=== PATIENT | female | born 1945 | race Caucasian/White ===

== ENCOUNTER 2025-01-02 09:43 | Inpatient (IN) | payer MEDICARE ==
[2025-01-02 10:31] LABS: BASOPHILS PERCENT AUTO 0.3 % (0.0-1.0); EOSINOPHILS PERCENT AUTO 0.7 % (1.0-3.0); HEMATOCRIT 41.6 % (37.0-47.0); HEMOGLOBIN 13.9 g/dL (12.0-16.0); LYMPHOCYTES PERCENT AUTO 16.5 % (20.5-50.1); MEAN CORPUSCULAR HEMOGLOBIN 30.8 pg (27.0-34.0); MEAN CORPUSCULAR HGB CONC 33.4 g/dL (33.0-35.0); MONOCYTES PERCENT AUTO 7.6 % (2-8); NEUTROPHILS PERCENT AUTO 74.9 % (42.2-75.2); PLATELET COUNT,PLT 260 10^3/uL (150-450); RED BLOOD CELL COUNT 4.52 10^6/uL (4.2-5.4); WHITE BLOOD CELL COUNT,WBC 7.6 10^3/uL (5.0-10.0)
[2025-01-02 10:53] LABS: A/G RATIO 0.6; ALANINE AMINOTRANSFERASE,ALT 15 U/L (14-59); ALBUMIN 3.4 g/dL (3.4-5.0); ALKALINE PHOSPHATASE 116 U/L (46-116); ANION GAP 11.7 mEq/L (7-13); ASPARTATE AMNIOTRANSFERASE,AST 13 U/L (15-37); BILIRUBIN TOTAL 0.9 mg/dL (0.2-1.0); BLOOD UREA NITROGEN,BUN 18 mg/dL (7-18); CALCIUM 9.7 mg/dL (8.5-10.1); CARBON DIOXIDE,CO2 25 mmol/L (21-32); CHLORIDE,CL 94 mmol/L (98-107); CREATININE 0.82 mg/dL (0.55-1.02); GLUCOSE RANDOM 142 mg/dL (70-99); MAGNESIUM 1.9 mg/dL (1.8-2.4); POTASSIUM,K 3.7 mmol/L (3.5-5.1); PROTEIN TOTAL,TP 8.8 g/dL (6.4-8.2); SODIUM,NA 127 mmol/L (136-145)
[2025-01-02] MEDS: Ketorolac 30 MG/ML SDV IM ONE (10:53)
[2025-01-02 10:54] LABS: ESTIMATED GFR 72 mL/min (>=60)
[2025-01-02 14:13] LABS: HEMOGLOBIN A1C 5.3 % (<5.7)
[2025-01-02 14:21] LABS: T4 FREE 1.42 ng/dL (0.76-1.46); TSH ULTRASENSITIVE 1.36 uIU/mL (0.36-3.74)
[2025-01-02] MEDS: Sodium Chloride 1 GM Tab PO SCH (14:58)
[2025-01-02] MEDS: Enoxaparin 40 MG/0.4 ML Syringe SUBCUT SCH (14:58)
[2025-01-02] MEDS: Docusate Sodium 100 MG Cap PO SCH (14:58)
[2025-01-02] MEDS: Acetaminophen 325 MG Tab PO SCH (14:58)
[2025-01-02] MEDS: Ibuprofen 400 MG Tab PO SCH (17:52)
[2025-01-02] MEDS: Sodium Chloride 0.9% 1,000 ML IV SCH (18:08)
[2025-01-02] MEDS: oxyCODONE 5 MG Tab PO PRN (20:36)
[2025-01-03 06:21] LABS: BASOPHILS PERCENT AUTO 0.3 % (0.0-1.0); EOSINOPHILS PERCENT AUTO 1.4 % (1.0-3.0); HEMATOCRIT 36.7 % (37.0-47.0); HEMOGLOBIN 12.1 g/dL (12.0-16.0); LYMPHOCYTES PERCENT AUTO 27.4 % (20.5-50.1); MEAN CORPUSCULAR HEMOGLOBIN 30.6 pg (27.0-34.0); MEAN CORPUSCULAR VOLUME 92.7 fL (80-100); MONOCYTES PERCENT AUTO 10.8 % (2-8); NEUTROPHILS PERCENT AUTO 60.1 % (42.2-75.2); PLATELET COUNT,PLT 226 10^3/uL (150-450); RED BLOOD CELL COUNT 3.96 10^6/uL (4.2-5.4); WHITE BLOOD CELL COUNT,WBC 5.8 10^3/uL (5.0-10.0)
[2025-01-03 06:37] LABS: ANION GAP 8.8 mEq/L (7-13); CALCIUM 9.1 mg/dL (8.5-10.1); CREATININE 0.68 mg/dL (0.55-1.02); EST CRCL DRUG DOSING (CG) 51.32 mL/min; POTASSIUM,K 3.8 mmol/L (3.5-5.1)
[2025-01-03] MEDS ORDERED: Ibuprofen 400 MG Tab PO SCH (10:00)
[2025-01-03] MEDS: fentaNYL 100 MCG/2 ML SDV IVPUSH ONE ×2 (13:47→18:11)
[2025-01-03] MEDS: Ibuprofen 400 MG Tab PO SCH (16:22)
[2025-01-03] MEDS: fentaNYL 12 MCG/HR Transdermal Patch TRDERM SCH (18:38)
[2025-01-04] MEDS: Ziprasidone Mesylate 20 MG Vial IM STA (00:32)
[2025-01-04] MEDS: Ibuprofen 400 MG Tab PO SCH (02:46)
[2025-01-04 06:46] LABS: BASOPHILS PERCENT AUTO 0.4 % (0.0-1.0); EOSINOPHILS PERCENT AUTO 1.4 % (1.0-3.0); HEMATOCRIT 40.4 % (37.0-47.0); HEMOGLOBIN 13.3 g/dL (12.0-16.0); LYMPHOCYTES PERCENT AUTO 30.7 % (20.5-50.1); MEAN CORPUSCULAR HGB CONC 32.9 g/dL (33.0-35.0); MEAN CORPUSCULAR VOLUME 94.2 fL (80-100); MONOCYTES PERCENT AUTO 11.7 % (2-8); NEUTROPHILS PERCENT AUTO 55.8 % (42.2-75.2); PLATELET COUNT,PLT 186 10^3/uL (150-450); RED BLOOD CELL COUNT 4.29 10^6/uL (4.2-5.4); WHITE BLOOD CELL COUNT,WBC 4.9 10^3/uL (5.0-10.0)
[2025-01-04 06:57] LABS: CALCIUM 9.4 mg/dL (8.5-10.1); CREATININE 0.62 mg/dL (0.55-1.02); EST CRCL DRUG DOSING (CG) 56.28 mL/min
[2025-01-05 15:25] LABS: APPEARANCE,URINE CLEAR (CLEAR); BILIRUBIN,URINE NEGATIVE (NEGATIVE); COLOR,URINE DARK YELLOW (YELLOW); GLUCOSE,URINE NEGATIVE (NEGATIVE); KETONES,URINE NEGATIVE (NEGATIVE); LEUKOCYTE ESTERASE,URINE NEGATIVE (NEGATIVE); NITRITE,URINE NEGATIVE (NEGATIVE); OCCULT BLOOD,URINE NEGATIVE (NEGATIVE); PROTEIN,URINE TRACE (NEGATIVE); UROBILINOGEN,URINE 0.2 mg/dL (0.2-1.0)
[2025-01-05 15:40] LABS: WBC,URINE 0-5 /HPF (0-5/HPF)
[2025-01-05 15:41] LABS: BACTERIA,URINE RARE /HPF (0-FEW/HPF); EPITHELIAL CELLS,URINE FEW /HPF (NOT SEEN); HYALINE CASTS,URINE RARE; MUCUS,URINE FEW /LPF (NOT SEEN); RBC,URINE 0-5 /HPF (0-5)
[2025-01-05] MEDS: Ziprasidone Mesylate 20 MG Vial IM STA (22:40)
[2025-01-05] MEDS: Ziprasidone Mesylate 20 MG Vial ONE (22:40)
[2025-01-07 06:23] LABS: BASOPHILS PERCENT AUTO 0.2 % (0.0-1.0); EOSINOPHILS PERCENT AUTO 3.2 % (1.0-3.0); HEMATOCRIT 35.7 % (37.0-47.0); HEMOGLOBIN 11.6 g/dL (12.0-16.0); LYMPHOCYTES PERCENT AUTO 30.8 % (20.5-50.1); MEAN CORPUSCULAR HEMOGLOBIN 31.3 pg (27.0-34.0); MEAN CORPUSCULAR HGB CONC 32.5 g/dL (33.0-35.0); MEAN CORPUSCULAR VOLUME 96.2 fL (80-100); MONOCYTES PERCENT AUTO 11.5 % (2-8); NEUTROPHILS PERCENT AUTO 54.3 % (42.2-75.2); PLATELET COUNT,PLT 237 10^3/uL (150-450); RED BLOOD CELL COUNT 3.71 10^6/uL (4.2-5.4)
[2025-01-07 06:36] LABS: ANION GAP 10.8 mEq/L (7-13); CALCIUM 9.3 mg/dL (8.5-10.1); CREATININE 0.65 mg/dL (0.55-1.02); EST CRCL DRUG DOSING (CG) 53.69 mL/min; POTASSIUM,K 3.8 mmol/L (3.5-5.1)
== END 2025-01-08 15:32 | disposition swing bed (61) | DRG 543 ==
LOC: DL.ED 09:43 → UNDOADMOB 13:13 → DL.MS 13:13 → OBSVTOIN 01-04 12:58 → DL.MS 01-05 12:53
PROVIDERS: ADMIT Internal Medicine; ATTEND Internal Medicine
DX: M80.08XA Age-related osteoporosis with current pathological fracture, vertebra(e), initial encounter for fracture (principal); M48.54XA Collapsed vertebra, not elsewhere classified, thoracic region, initial encounter for fracture; E87.1 Hypo-osmolality and hyponatremia; E83.52 Hypercalcemia; E66.9 Obesity, unspecified; R73.9 Hyperglycemia, unspecified; Z68.28 Body mass index [BMI] 28.0-28.9, adult; Z98.891 History of uterine scar from previous surgery; Z88.0 Allergy status to penicillin
CPT/HCPCS: 36415; 72128; 72131; 80048; 80053; 81001; 83036; 83735; 84439; 84443; 84484; 85025; 96372; 97110-GP; 97116-GP; 97161-GP; 97165-GO; 97530-GO; 99223; 99232; 99233; 99239; A9270-GY; G0378; J1650; J1885; J3010; J3486; J7030

== ENCOUNTER 2025-01-08 08:38 | Inpatient (IN) | payer MEDICARE ==
[2025-01-08] MEDS: Acetaminophen 325 MG Tab PO SCH (16:26)
[2025-01-08] MEDS: Ibuprofen 400 MG Tab PO SCH (16:26)
[2025-01-08] MEDS ORDERED: Check Patch TRDERM SCH (21:00)
[2025-01-09] MEDS: Docusate Sodium 100 MG Cap PO SCH (08:14)
[2025-01-09] MEDS: Enoxaparin 40 MG/0.4 ML Syringe SUBCUT SCH (08:14)
[2025-01-09] MEDS ORDERED: fentaNYL 12 MCG/HR Transdermal Patch TRDERM SCH (17:30)
[2025-01-11 06:32] LABS: BASOPHILS PERCENT AUTO 0.2 % (0.0-1.0); EOSINOPHILS PERCENT AUTO 4.3 % (1.0-3.0); HEMATOCRIT 33.4 % (37.0-47.0); HEMOGLOBIN 11.3 g/dL (12.0-16.0); LYMPHOCYTES PERCENT AUTO 29.6 % (20.5-50.1); MEAN CORPUSCULAR HEMOGLOBIN 32.7 pg (27.0-34.0); MEAN CORPUSCULAR HGB CONC 33.8 g/dL (33.0-35.0); MEAN CORPUSCULAR VOLUME 96.5 fL (80-100); MONOCYTES PERCENT AUTO 11.3 % (2-8); NEUTROPHILS PERCENT AUTO 54.6 % (42.2-75.2); PLATELET COUNT,PLT 220 10^3/uL (150-450); RED BLOOD CELL COUNT 3.46 10^6/uL (4.2-5.4); WHITE BLOOD CELL COUNT,WBC 4.4 10^3/uL (5.0-10.0)
[2025-01-11] MEDS: oxyCODONE 5 MG Tab PO PRN (06:46)
[2025-01-11 07:09] LABS: ALBUMIN 2.5 g/dL (3.4-5.0); BILIRUBIN TOTAL 0.4 mg/dL (0.2-1.0); BUN/CREATININE RATIO 36.8 (No establ ref range); CALCIUM 9.4 mg/dL (8.5-10.1); CREATININE 0.57 mg/dL (0.55-1.02); EST CRCL DRUG DOSING (CG) 61.22 mL/min
[2025-01-11 07:11] LABS: A/G RATIO 0.56
[2025-01-15] MEDS: Chlorthalidone 25 MG Tab PO ONE (08:20)
[2025-01-15 08:39] LABS: BASOPHILS PERCENT AUTO 0.2 % (0.0-1.0); EOSINOPHILS PERCENT AUTO 3.9 % (1.0-3.0); HEMATOCRIT 33.4 % (37.0-47.0); HEMOGLOBIN 10.5 g/dL (12.0-16.0); LYMPHOCYTES PERCENT AUTO 28.3 % (20.5-50.1); MEAN CORPUSCULAR HEMOGLOBIN 30.5 pg (27.0-34.0); MEAN CORPUSCULAR HGB CONC 31.4 g/dL (33.0-35.0); MEAN CORPUSCULAR VOLUME 97.1 fL (80-100); MONOCYTES PERCENT AUTO 7.6 % (2-8); PLATELET COUNT,PLT 201 10^3/uL (150-450); RED BLOOD CELL COUNT 3.44 10^6/uL (4.2-5.4); WHITE BLOOD CELL COUNT,WBC 4.6 10^3/uL (5.0-10.0)
[2025-01-15 08:53] LABS: ANION GAP 8.8 mEq/L (7-13); CALCIUM 9.3 mg/dL (8.5-10.1); CREATININE 0.5 mg/dL (0.55-1.02); EST CRCL DRUG DOSING (CG) 69.79 mL/min; POTASSIUM,K 3.8 mmol/L (3.5-5.1)
== END 2025-01-15 13:20 | DRG 560 ==
LOC: DL.MS 16:17
PROVIDERS: ADMIT Internal Medicine; ATTEND Student in an Organized Health Care Education/Training Program
DX: M48.54XD Collapsed vertebra, not elsewhere classified, thoracic region, subsequent encounter for fracture with routine healing (principal); E87.1 Hypo-osmolality and hyponatremia; F05 Delirium due to known physiological condition; F03.90 Unspecified dementia, unspecified severity, without behavioral disturbance, psychotic disturbance, mood disturbance, and anxiety; E66.9 Obesity, unspecified; R73.9 Hyperglycemia, unspecified; D63.8 Anemia in other chronic diseases classified elsewhere; E83.52 Hypercalcemia; D72.819 Decreased white blood cell count, unspecified; E88.09 Other disorders of plasma-protein metabolism, not elsewhere classified; Z88.0 Allergy status to penicillin; Z68.28 Body mass index [BMI] 28.0-28.9, adult
CPT/HCPCS: 36415; 80048; 80053; 83735; 85025; 97110-GO; 97110-GP; 97116-GP; 97161-GP; 97165-GO; 97530-GO; 97530-GP; 99305; 99309; 99315; A9270-GY; J1650

== ENCOUNTER 2025-05-11 12:32 | Inpatient (IN) | payer MEDICARE, MEDICAID ==
[2025-05-11 12:36] LABS: BASOPHILS PERCENT AUTO 0.2 % (0.0-1.0); EOSINOPHILS PERCENT AUTO 0.8 % (1.0-3.0); LYMPHOCYTES PERCENT AUTO 16.0 % (20.5-50.1); MONOCYTES PERCENT AUTO 10.7 % (2-8); NEUTROPHILS PERCENT AUTO 72.3 % (42.2-75.2); PLATELET COUNT,PLT 171 10^3/uL (150-450); RED BLOOD CELL COUNT 3.82 10^6/uL (4.2-5.4); WHITE BLOOD CELL COUNT,WBC 6.4 10^3/uL (5.0-10.0)
[2025-05-11 12:54] LABS: APPEARANCE,URINE SLIGHTLY CLOUDY (CLEAR); GLUCOSE,URINE NEGATIVE (NEGATIVE); OCCULT BLOOD,URINE MODERATE (NEGATIVE)
[2025-05-11 12:58] LABS: ALANINE AMINOTRANSFERASE,ALT 17 U/L (14-59); ASPARTATE AMNIOTRANSFERASE,AST 23 U/L (15-37); BILIRUBIN TOTAL 1.7 mg/dL (0.2-1.0); BLOOD UREA NITROGEN,BUN 44 mg/dL (7-18); CARBON DIOXIDE,CO2 29 mmol/L (21-32); CHLORIDE,CL 99 mmol/L (98-107); CREATININE 0.78 mg/dL (0.55-1.02); GLUCOSE RANDOM 122 mg/dL (70-99); LACTIC ACID 1.3 mmol/L (0.4-2.0); PHOSPHORUS 3.2 mg/dL (2.6-4.7); POTASSIUM,K 2.9 mmol/L (3.5-5.1); PROTEIN TOTAL,TP 8.0 g/dL (6.4-8.2); SODIUM,NA 138 mmol/L (136-145)
[2025-05-11 12:59] LABS: A/G RATIO 0.57; ESTIMATED GFR 76 mL/min (>=60)
[2025-05-11 13:07] LABS: EPITHELIAL CELLS,URINE FEW /HPF (NOT SEEN)
[2025-05-11] MEDS: Potassium Chloride 10 MEQ Tab.ER PO ONE ×2 (13:26→23:14)
[2025-05-11] MEDS ORDERED: Sennosides/Docusate Sodium 50-8.6 MG Tab PO PRN (17:40)
[2025-05-11] MEDS ORDERED: Ondansetron 4 MG/2 ML SDV IVPUSH PRN (17:40)
[2025-05-11] MEDS: Nystatin Topical Powder 60 GM Bottle TOP SCH (22:03)
[2025-05-11 23:49] LABS: IRON,FE 23.0 ug/dL (50-170); PERCENT FE SATURATION 10.9 % (20.0-50.0)
[2025-05-12 00:03] LABS: FOLIC ACID 5.7 ng/mL (8.6-58.9)
[2025-05-12 06:31] LABS: BASOPHILS PERCENT AUTO 0.0 % (0.0-1.0); EOSINOPHILS PERCENT AUTO 1.9 % (1.0-3.0); LYMPHOCYTES PERCENT AUTO 23.1 % (20.5-50.1); MONOCYTES PERCENT AUTO 13.6 % (2-8); NEUTROPHILS PERCENT AUTO 61.4 % (42.2-75.2); PLATELET COUNT,PLT 152 10^3/uL (150-450); RED BLOOD CELL COUNT 3.48 10^6/uL (4.2-5.4); WHITE BLOOD CELL COUNT,WBC 4.8 10^3/uL (5.0-10.0)
[2025-05-12 07:11] LABS: ALANINE AMINOTRANSFERASE,ALT 17.0 U/L (14-59); ASPARTATE AMNIOTRANSFERASE,AST 23.0 U/L (15-37); BILIRUBIN TOTAL 1.2 mg/dL (0.2-1.0); BLOOD UREA NITROGEN,BUN 33.0 mg/dL (7-18); CARBON DIOXIDE,CO2 26.0 mmol/L (21-32); CHLORIDE,CL 103.0 mmol/L (98-107); CREATININE 0.51 mg/dL (0.55-1.02); EST CRCL DRUG DOSING (CG) 74.71 mL/min; GLUCOSE RANDOM 91.0 mg/dL (70-99); POTASSIUM,K 3.3 mmol/L (3.5-5.1); PROTEIN TOTAL,TP 7.1 g/dL (6.4-8.2); SODIUM,NA 136.0 mmol/L (136-145)
[2025-05-12 07:13] LABS: A/G RATIO 0.51; ESTIMATED GFR 94.0 mL/min (>=60)
[2025-05-12] MEDS: Potassium Chloride 10 MEQ Tab.ER PO SCH (08:36)
[2025-05-13 07:15] LABS: BASOPHILS PERCENT AUTO 0.2 % (0.0-1.0); EOSINOPHILS PERCENT AUTO 3.1 % (1.0-3.0); LYMPHOCYTES PERCENT AUTO 20.2 % (20.5-50.1); MONOCYTES PERCENT AUTO 11.4 % (2-8); NEUTROPHILS PERCENT AUTO 65.1 % (42.2-75.2); PLATELET COUNT,PLT 158 10^3/uL (150-450); RED BLOOD CELL COUNT 3.67 10^6/uL (4.2-5.4); WHITE BLOOD CELL COUNT,WBC 5.1 10^3/uL (5.0-10.0)
[2025-05-13 07:43] LABS: ALANINE AMINOTRANSFERASE,ALT 17.0 U/L (14-59); ASPARTATE AMNIOTRANSFERASE,AST 26.0 U/L (15-37); BILIRUBIN TOTAL 1.4 mg/dL (0.2-1.0); BLOOD UREA NITROGEN,BUN 18.0 mg/dL (7-18); CARBON DIOXIDE,CO2 25.0 mmol/L (21-32); CHLORIDE,CL 102.0 mmol/L (98-107); CREATININE 0.39 mg/dL (0.55-1.02); EST CRCL DRUG DOSING (CG) 97.69 mL/min; POTASSIUM,K 3.5 mmol/L (3.5-5.1); PROTEIN TOTAL,TP 7.2 g/dL (6.4-8.2); SODIUM,NA 136.0 mmol/L (136-145)
[2025-05-13 07:48] LABS: GLUCOSE RANDOM 96.0 mg/dL (70-99)
[2025-05-13 07:49] LABS: A/G RATIO 0.47; ESTIMATED GFR 100.0 mL/min (>=60)
[2025-05-13] MEDS: Sodium Chloride 0.9% 10 ML Syringe FLUSH PRN (08:22)
[2025-05-13] MEDS: Magnesium Sulfate 2 GM/50 mL 2 GM in Premix Bag 1 BAG IV ONE (09:52)
[2025-05-14 06:44] LABS: BASOPHILS PERCENT AUTO 0.0 % (0.0-1.0); EOSINOPHILS PERCENT AUTO 3.8 % (1.0-3.0); LYMPHOCYTES PERCENT AUTO 19.6 % (20.5-50.1); MONOCYTES PERCENT AUTO 12.0 % (2-8); NEUTROPHILS PERCENT AUTO 64.6 % (42.2-75.2); PLATELET COUNT,PLT 171 10^3/uL (150-450); RED BLOOD CELL COUNT 3.70 10^6/uL (4.2-5.4); WHITE BLOOD CELL COUNT,WBC 4.5 10^3/uL (5.0-10.0)
[2025-05-14 07:07] LABS: ALANINE AMINOTRANSFERASE,ALT 20.0 U/L (14-59); ASPARTATE AMNIOTRANSFERASE,AST 20.0 U/L (15-37); BILIRUBIN TOTAL 1.0 mg/dL (0.2-1.0); BLOOD UREA NITROGEN,BUN 17.0 mg/dL (7-18); CARBON DIOXIDE,CO2 28.0 mmol/L (21-32); CHLORIDE,CL 103.0 mmol/L (98-107); CREATININE 0.39 mg/dL (0.55-1.02); EST CRCL DRUG DOSING (CG) 97.69 mL/min; GLUCOSE RANDOM 95.0 mg/dL (70-99); POTASSIUM,K 3.2 mmol/L (3.5-5.1); PROTEIN TOTAL,TP 6.8 g/dL (6.4-8.2); SODIUM,NA 137.0 mmol/L (136-145)
[2025-05-14 07:36] LABS: A/G RATIO 0.45; ESTIMATED GFR 100.0 mL/min (>=60)
[2025-05-14] MEDS: Potassium Chloride 10 MEQ Tab.ER PO SCH (09:58)
[2025-05-15 06:39] LABS: BASOPHILS PERCENT AUTO 0.2 % (0.0-1.0); EOSINOPHILS PERCENT AUTO 3.5 % (1.0-3.0); LYMPHOCYTES PERCENT AUTO 21.6 % (20.5-50.1); MONOCYTES PERCENT AUTO 12.4 % (2-8); NEUTROPHILS PERCENT AUTO 62.3 % (42.2-75.2); PLATELET COUNT,PLT 181 10^3/uL (150-450); RED BLOOD CELL COUNT 3.67 10^6/uL (4.2-5.4); WHITE BLOOD CELL COUNT,WBC 4.8 10^3/uL (5.0-10.0)
[2025-05-15 07:04] LABS: ALANINE AMINOTRANSFERASE,ALT 18.0 U/L (14-59); ASPARTATE AMNIOTRANSFERASE,AST 18.0 U/L (15-37); BILIRUBIN TOTAL 0.7 mg/dL (0.2-1.0); BLOOD UREA NITROGEN,BUN 20.0 mg/dL (7-18); CARBON DIOXIDE,CO2 27.0 mmol/L (21-32); CHLORIDE,CL 104.0 mmol/L (98-107); CREATININE 0.52 mg/dL (0.55-1.02); EST CRCL DRUG DOSING (CG) 73.27 mL/min; GLUCOSE RANDOM 103.0 mg/dL (70-99); POTASSIUM,K 3.7 mmol/L (3.5-5.1); PROTEIN TOTAL,TP 6.9 g/dL (6.4-8.2); SODIUM,NA 139.0 mmol/L (136-145)
[2025-05-15 07:11] LABS: A/G RATIO 0.44; ESTIMATED GFR 93.0 mL/min (>=60)
[2025-05-15] MEDS: Potassium Chloride 10 MEQ Tab.ER PO SCH (09:44)
[2025-05-15 13:57] LABS: O2 DELIVERY DEVICE NASAL CANNULA
[2025-05-15 14:00] LABS: BASE EXCESS VENOUS 1.8 mmol/l ((-2)-(+3)); BICARBONATE,VENOUS 26 mmol/l (19-25); O2 SATURATION VENOUS 99.1 % (60-80); PCO2 VENOUS 39 mmHg (41-51); PH,VENOUS 7.43 (7.31-7.41); PO2 VENOUS 126 mmHg (35-42)
[2025-05-16 06:10] LABS: BASOPHILS PERCENT AUTO 0.2 % (0.0-1.0); EOSINOPHILS PERCENT AUTO 4.8 % (1.0-3.0); LYMPHOCYTES PERCENT AUTO 25.5 % (20.5-50.1); MONOCYTES PERCENT AUTO 12.7 % (2-8); NEUTROPHILS PERCENT AUTO 56.8 % (42.2-75.2); PLATELET COUNT,PLT 177 10^3/uL (150-450); RED BLOOD CELL COUNT 3.40 10^6/uL (4.2-5.4); WHITE BLOOD CELL COUNT,WBC 4.4 10^3/uL (5.0-10.0)
[2025-05-16 06:36] LABS: A/G RATIO 0.45; ALANINE AMINOTRANSFERASE,ALT 18.0 U/L (14-59); ASPARTATE AMNIOTRANSFERASE,AST 14.0 U/L (15-37); BILIRUBIN TOTAL 0.6 mg/dL (0.2-1.0); BLOOD UREA NITROGEN,BUN 23.0 mg/dL (7-18); CARBON DIOXIDE,CO2 28.0 mmol/L (21-32); CHLORIDE,CL 105.0 mmol/L (98-107); CREATININE 0.42 mg/dL (0.55-1.02); EST CRCL DRUG DOSING (CG) 90.71 mL/min; ESTIMATED GFR 98.0 mL/min (>=60); GLUCOSE RANDOM 100.0 mg/dL (70-99); POTASSIUM,K 3.6 mmol/L (3.5-5.1); PROTEIN TOTAL,TP 6.8 g/dL (6.4-8.2); SODIUM,NA 140.0 mmol/L (136-145)
[2025-05-17 06:37] LABS: BASOPHILS PERCENT AUTO 0.2 % (0.0-1.0); EOSINOPHILS PERCENT AUTO 4.3 % (1.0-3.0); LYMPHOCYTES PERCENT AUTO 25.3 % (20.5-50.1); MONOCYTES PERCENT AUTO 11.8 % (2-8); NEUTROPHILS PERCENT AUTO 58.4 % (42.2-75.2); PLATELET COUNT,PLT 169 10^3/uL (150-450); RED BLOOD CELL COUNT 3.41 10^6/uL (4.2-5.4); WHITE BLOOD CELL COUNT,WBC 4.2 10^3/uL (5.0-10.0)
[2025-05-17 07:02] LABS: ALANINE AMINOTRANSFERASE,ALT 21.0 U/L (14-59); ASPARTATE AMNIOTRANSFERASE,AST 16.0 U/L (15-37); BILIRUBIN TOTAL 0.5 mg/dL (0.2-1.0); BLOOD UREA NITROGEN,BUN 17.0 mg/dL (7-18); CARBON DIOXIDE,CO2 29.0 mmol/L (21-32); CHLORIDE,CL 107.0 mmol/L (98-107); CREATININE 0.36 mg/dL (0.55-1.02); EST CRCL DRUG DOSING (CG) 105.83 mL/min; GLUCOSE RANDOM 97.0 mg/dL (70-99); POTASSIUM,K 3.7 mmol/L (3.5-5.1); PROTEIN TOTAL,TP 6.3 g/dL (6.4-8.2); SODIUM,NA 142.0 mmol/L (136-145)
[2025-05-17 07:03] LABS: A/G RATIO 0.47; ESTIMATED GFR 102.0 mL/min (>=60)
[2025-05-18 06:42] LABS: BASOPHILS PERCENT AUTO 0.2 % (0.0-1.0); EOSINOPHILS PERCENT AUTO 4.3 % (1.0-3.0); LYMPHOCYTES PERCENT AUTO 26.6 % (20.5-50.1); MONOCYTES PERCENT AUTO 10.0 % (2-8); NEUTROPHILS PERCENT AUTO 58.9 % (42.2-75.2); PLATELET COUNT,PLT 205 10^3/uL (150-450); RED BLOOD CELL COUNT 3.62 10^6/uL (4.2-5.4); WHITE BLOOD CELL COUNT,WBC 4.9 10^3/uL (5.0-10.0)
[2025-05-18 07:07] LABS: ALANINE AMINOTRANSFERASE,ALT 22.0 U/L (14-59); ASPARTATE AMNIOTRANSFERASE,AST 18.0 U/L (15-37); BILIRUBIN TOTAL 0.5 mg/dL (0.2-1.0); BLOOD UREA NITROGEN,BUN 11.0 mg/dL (7-18); CARBON DIOXIDE,CO2 27.0 mmol/L (21-32); CHLORIDE,CL 107.0 mmol/L (98-107); CREATININE 0.38 mg/dL (0.55-1.02); EST CRCL DRUG DOSING (CG) 100.26 mL/min; GLUCOSE RANDOM 95.0 mg/dL (70-99); POTASSIUM,K 4.4 mmol/L (3.5-5.1); PROTEIN TOTAL,TP 6.9 g/dL (6.4-8.2); SODIUM,NA 142.0 mmol/L (136-145)
[2025-05-18 07:08] LABS: A/G RATIO 0.47; ESTIMATED GFR 101.0 mL/min (>=60)
[2025-05-19 08:43] LABS: BASOPHILS PERCENT AUTO 0.2 % (0.0-1.0); EOSINOPHILS PERCENT AUTO 4.1 % (1.0-3.0); LYMPHOCYTES PERCENT AUTO 24.6 % (20.5-50.1); MONOCYTES PERCENT AUTO 10.3 % (2-8); NEUTROPHILS PERCENT AUTO 60.8 % (42.2-75.2); PLATELET COUNT,PLT 211 10^3/uL (150-450); RED BLOOD CELL COUNT 3.73 10^6/uL (4.2-5.4); WHITE BLOOD CELL COUNT,WBC 4.7 10^3/uL (5.0-10.0)
[2025-05-19 08:58] LABS: BLOOD UREA NITROGEN,BUN 12.0 mg/dL (7-18); CARBON DIOXIDE,CO2 27.0 mmol/L (21-32); CHLORIDE,CL 106.0 mmol/L (98-107); CREATININE 0.34 mg/dL (0.55-1.02); EST CRCL DRUG DOSING (CG) 112.06 mL/min; GLUCOSE RANDOM 95.0 mg/dL (70-99); POTASSIUM,K 4.1 mmol/L (3.5-5.1); SODIUM,NA 140.0 mmol/L (136-145)
[2025-05-19 08:59] LABS: ESTIMATED GFR 103.0 mL/min (>=60)
[2025-05-19] MEDS: Potassium Chloride 10 MEQ Tab.ER PO SCH (09:49)
== END 2025-05-19 13:20 | DRG 690 ==
LOC: DL.ED 12:32 → DL.MS 14:39
PROVIDERS: ADMIT Student in an Organized Health Care Education/Training Program; ATTEND Student in an Organized Health Care Education/Training Program
DX: N30.00 Acute cystitis without hematuria (principal); S22.39XA Fracture of one rib, unspecified side, initial encounter for closed fracture; E87.6 Hypokalemia; R29.6 Repeated falls; Z79.1 Long term (current) use of non-steroidal anti-inflammatories (NSAID); F03.90 Unspecified dementia, unspecified severity, without behavioral disturbance, psychotic disturbance, mood disturbance, and anxiety; Z68.28 Body mass index [BMI] 28.0-28.9, adult; E66.9 Obesity, unspecified; E86.0 Dehydration; R09.02 Hypoxemia; R79.89 Other specified abnormal findings of blood chemistry; D64.9 Anemia, unspecified; E88.09 Other disorders of plasma-protein metabolism, not elsewhere classified; E83.42 Hypomagnesemia; D72.819 Decreased white blood cell count, unspecified; Z79.899 Other long term (current) drug therapy; Z88.0 Allergy status to penicillin; Z98.891 History of uterine scar from previous surgery; Z68.27 Body mass index [BMI] 27.0-27.9, adult
CPT/HCPCS: 36415; 70450; 72131; 72192; 73700 ×2; 80053; 81001; 82140; 82947; 83605; 83735; 84100; 84484; 85025; 86140; 87086; 87088; 87186; 93005; 96374; 99285; A9270; C1758; J0696; J7030; 71045; 80048; 82248; 82607; 82728; 82746; 82803; 83540; 83550; 84132; 93010; 97161-GP; 97165-GO; 97530-GP; 99223; 99232; 99233; 99238; 99284; J1650; J3475; J3490